=== PATIENT | female | born 1990 | race Caucasian/White ===

== ENCOUNTER 2017-01-10 05:56 | Day surgery (SDC) | payer OTHER ==
[2017-01-10] VITALS (7 sets, daily range): BP systolic 125–137; BP diastolic 66–87
[~2017-01-10] VITALS: Ht 165.1 cm; Wt 96.2 kg
[2017-01-10] MEDS ORDERED: ROCURONIUM 50 MG/5 ML VIAL IV ONE (07:30)
[2017-01-10] MEDS ORDERED: KETOROLAC 60 MG/2 ML VIAL IM ONE (07:30)
[2017-01-10] MEDS ORDERED: SEVOFLURANE 250 ML BTL INH ONE (07:30)
[2017-01-10] MEDS ORDERED: ONDANSETRON 4 MG/2 ML VIAL IVP ONE (07:30)
[2017-01-10] MEDS ORDERED: SUCCINYLCHOLINE CHLORIDE 200 MG/10 ML VIAL IV ONE (07:30)
[2017-01-10] MEDS ORDERED: GLYCOPYRROLATE 0.2 MG/ML VIAL IV ONE (07:30)
[2017-01-10] MEDS ORDERED: DEXAMETHASONE 4 MG/ML VIAL IVP ONE (07:30)
[2017-01-10] MEDS ORDERED: PROPOFOL 200 MG/20 ML VIAL IV ONE (07:30)
[2017-01-10] MEDS ORDERED: PHENYLEPHRINE 10 MG/ML VIAL IM ONE (07:30)
[2017-01-10] MEDS ORDERED: BUPIVACAINE-MPF/EPI 0.25% 30 ML VIAL INJ ONE (07:35)
[2017-01-10] MEDS ORDERED: fentaNYL 0.05 MG/ML VIAL ONE (07:52)
[2017-01-10] MEDS ORDERED: MEPERIDINE 50 MG/ML SYR ONE (07:52)
[2017-01-10] MEDS ORDERED: MIDAZOLAM 2 MG/2 ML VIAL ONE (07:52)
[2017-01-10] MEDS ORDERED: MIDAZOLAM 2 MG/2 ML VIAL IVP ONE (08:42)
[2017-01-10] MEDS ORDERED: MEPERIDINE 25 MG/ML SYR IM PRN ×2 (08:42→08:44)
[2017-01-10] MEDS ORDERED: METOCLOPRAMIDE 10 MG/2 ML INJ VIAL IVP PRN (08:44)
[2017-01-10] MEDS ORDERED: MEPERIDINE 25 MG/ML SYR IVP PRN ×2 (08:45)
[2017-01-10] MEDS: NACL 0.9% 1,000 ML IV SCH ×2 (09:54→19:54)
[2017-01-10] MEDS ORDERED: ONDANSETRON 4 MG/2 ML VIAL IV PRN (09:55)
[2017-01-10] MEDS ORDERED: MORPHINE SULFATE 4 MG/ML SYR IV PRN (09:55)
[2017-01-10] MEDS ORDERED: MORPHINE SULFATE 2 MG/ML SYR IVP PRN (09:55)
[2017-01-10] MEDS ORDERED: HYDROcodone/APAP 5/325 MG 1 TAB TAB PO PRN (09:55)
[2017-01-10] MEDS ORDERED: MEPERIDINE 25 MG/ML SYR ONE (10:10)
--- NOTE | 2017-01-10 10:55 | NUR ---
PT ON UNIT. NO S/S OF ACUTE DISTRESS. AAOX4. PT STATES PAIN 03/07. PT PREVIOUSLY MEDICATED. IV SITE PATENT AND INTACT. PT ORIENTED TO ROOM. CALL LIGHT WITHIN REACH. WILL CONTINUE TO MONITOR.
--- NOTE | 2017-01-10 12:06 | NUR ---
PT SLEEPING IN BED. NO S/S OF ACUTE DISTRESS. CALL LIGHT WITHIN REACH. WILL CONTINUE TO MONITOR.
--- NOTE | 2017-01-10 13:48 | NUR ---
PT SLEEPING IN BED. NO S/S OF ACUTE DISTRESS. PT DENIES PAIN. CALL LIGHT WITHIN REACH. WILL CONTINUE TO MONITOR.
--- NOTE | 2017-01-10 15:55 | NUR ---
PT SLEEPING IN BED. NO S/S OF ACUTE DISTRESS. CALL LIGHT WITHIN REACH. WILL CONTINUE TO MONITOR.
[2017-01-10] MEDS ORDERED: HYDROmorphone 1 MG/ML AMP IVP PRN (17:40)
--- NOTE | 2017-01-10 19:25 | NUR ---
ENDORSED PLAN OF CARE TO NIGHT RN. PT REMAINS IN STABLE CONDITION.
--- NOTE | 2017-01-10 19:26 | NUR ---
RECD. RESTING IN BED, S/P LAP CHOLECYSTECTOMY, AWAKE, A/OX4. RESPIRATION EVEN AND UNLABORED. IV OF NS AT 100 ML/HR INFUSING, LEFT HAND G20. INCISION IN THE ABDOMEN (3) COVERED WITH BAND AID DRESSING DRY AND INTACT WITH ONE AI DRAINING SANGUINOUS FLUID SMALL AMOUNT. PLAN OF CARE FOR THE SHIFT DISCUSSED. VERBALIZED UNDERSTANDING. PAIN 1/0, CLAIMED TOLERABLE. WILL MONITOR AND MEDICATE ORDERED.
--- NOTE | 2017-01-10 20:00 | NUR ---
Patient's Plan of Care was discussed and reviewed with TOY PACKER: ARTUR ALVAREZ
[2017-01-10] MEDS: HYDROmorphone 1 MG/ML AMP IVP PRN (20:11)
--- NOTE | 2017-01-11 | NUR ---
SLEEPING COMFORTABLY IN BED.
[2017-01-11] MEDS: NACL 0.9% 1,000 ML IV SCH ×3 (02:12→12:02)
--- NOTE | 2017-01-11 04:30 | NUR ---
ASSISTED OUT OF BED TO AMBULATE IN THE BR. BACK TO BED AFTER VOIDING.
--- NOTE | 2017-01-11 06:00 | NUR ---
ABLE TO EMPTY 20 ML OF SANGUINOUS FLUID FROM AI.
[2017-01-11] MEDS: HYDROmorphone 1 MG/ML AMP IVP PRN ×5 (06:36→20:26)
--- NOTE | 2017-01-11 06:36 | NUR ---
ADMINISTERED BP MEDICATION PER ORDERS, PT BP IS 129/76, HR 85 AND OXYGEN SATURATION 95%. WILL CONTINUE TO MONITOR.
--- NOTE | 2017-01-11 07:15 | NUR ---
CONDITION REMAIN STABLE. ENDORSED TO DENICE DICKEY FOR CONTINUITY OF CARE.
--- NOTE | 2017-01-11 07:17 | NUR ---
RECEIVED REPORT FROM NIGHT RN.PT RESTING IN BED. NO S/S OF ACUTE DISTRESS. PT DENIES PAIN. IV SITE PATENT AND INTACT. CALL LIGHT WITHIN REACH. SAFETY MEASURES ENSURED. WILL CONTINUE TO MONITOR.
[2017-01-11 08:00] VITALS: BP 125/65
--- NOTE | 2017-01-11 10:11 | NUR ---
PT SLEEPING IN BED. NO S/S OF ACUTE DISTRESS. DRESSING TO ABDOMEN DRY AND INTACT. CALL LIGHT WITHIN REACH. SAFETY MEASURES ENSURED. WILL CONTINUE TO MONITOR.
--- NOTE | 2017-01-11 11:45 | NUR ---
PT UP AND AMBULATING IN HALLWAY. NO S/S OF ACUTE DISTRESS.
--- NOTE | 2017-01-11 14:20 | NUR ---
PT RESTING IN BED. NO S/S OF ACUTE DISTRESS. PT DENIES PAIN. CALL LIGHT WITHIN REACH. WILL CONTINUE TO MONITOR.
[2017-01-11 15:36] VITALS: BP 125/65
[2017-01-11 16:00] VITALS: BP 131/81
--- NOTE | 2017-01-11 17:00 | NUR ---
PER DR. BARRETO PT OKAY FOR DISCHARGE IF SHE FEELS COMFORTABLE GOING HOME.
--- NOTE | 2017-01-11 17:10 | NUR ---
SPOKE TO PT REGARDING DISCHARGE. PT STATES SHE FEELS BLOATED AND HAS NOT PASSED GAS SINCE THE SURGERY. PRUNE JUICE GIVEN. WILL SEE IF PT IS ABLE TO PASS GAS AND FOLLOW UP WITH DR. BARRETO.
--- NOTE | 2017-01-11 17:32 | NUR ---
PT RESTING IN BED. NO S/S OF ACUTE DISTRESS. PT DENIES PAIN. CALL LIGHT WITHIN REACH. WILL CONTINUE TO MONITOR.
[2017-01-11] MEDS ORDERED: PERCOCET 325 MG1 TA1 PO (19:17)
--- NOTE | 2017-01-11 19:39 | NUR ---
ENDORSED PLAN OF CARE TO NIGHT RN. PT REMAINS IN STABLE CONDITION.
--- NOTE | 2017-01-11 19:40 | NUR ---
RECEIVED PT FROM KELI GALDAMEZ PT S/P MARK CARDOZO PT ALREADY PASS GAS AND IS ORDER TO DC HOME PICTURE WILL BE TAKEN AND AI WILL BE REMOVED DENICE CHANG DID ALL [employer] WORK FOR DISCHARGED ALREADY GIVE PRESCRIPTION AND DR GASTON TO FOLLOW
--- NOTE | 2017-01-11 20:45 | NUR ---
AI REMOVED AND PICTURE FROM ABD INCISION TAKEN ID BANDED CUT PT IS READY TO GO HOME DENIES ANY ABD PAIN RELATVES AT BED SIDE
--- NOTE | 2017-01-11 21:00 | NUR ---
PT IS TAKEN TO THE LOBBI ON A WHEELCHAIR TO THE PARKING LOT ON STABLE CONDITION, RELATIVES IS DRIVEN PT HOME VSS
== END 2017-01-11 21:05 | disposition home or self-care (01) ==
LOC: MDS 05:56 → MMU 06:03 → MDS 01-11 21:05
PROVIDERS: ATTEND Surgery
DX: K80.10 Calculus of gallbladder with chronic cholecystitis without obstruction (principal)
CPT/HCPCS: 36415; 47562; 71010; 80053; 82374; 85025; 86886; 86900; 86901; 87081; C1887; J0330; J0690; J1100; J1170; J1885; J2175; J2250; J2270; J2370; J2405; J2704; J3010; J3490; J7030; J7060; J7120